=== PATIENT | male | born 1990 | race African-American/Black ===

== ENCOUNTER 2017-03-02 06:42 | Emergency (ER) | payer OTHER ==
[~2017-03-02] VITALS: Ht 177.8 cm; Wt 102.0 kg
[~2017-03-02 06:42] MED LIST: TRAZ-136 PO
[2017-03-02] MEDS ORDERED: KETOROLAC 60 MG/2 ML VIAL (J1885) IM ONE (08:00)
--- NOTE | 2017-03-02 09:04 | REP ---
Soft-tissue ultrasound right buttock region. History: Question right buttock abscess. Findings: Soft tissue sonography in the region of the palpable abnormality in the right buttock demonstrates a complex fluid collection measuring 2.6 x 1.7 x 2.3 cm. This shows enhanced through transmission and a well defined back wall. The lesion also appears to contain one or two tiny foci of echogenicity which may reflect air. Findings are most compatible with subcutaneous abscess. Impression: 2.6 x 2.3 x 1.7 cm complex fluid collection compatible with abscess. Signed by Rich Mcgrath MD 03/02/2017 09:12 A
[2017-03-02] MEDS ORDERED: BACT800T5 PO (09:49)
[2017-03-02] MEDS ORDERED: NAPR500T PO (09:49)
[2017-03-02] MEDS ORDERED: CYCL10TA PO (09:49)
[2017-03-02 10:13] VITALS: BP 130/64
== END 2017-03-02 10:14 | disposition home or self-care (01) ==
LOC: M ED 06:42
DX: S39.012A Strain of muscle, fascia and tendon of lower back, initial encounter (principal); M62.830 Muscle spasm of back; L02.31 Cutaneous abscess of buttock; X58.XXXA Exposure to other specified factors, initial encounter; Y92.9 Unspecified place or not applicable; Y93.9 Activity, unspecified; Y99.9 Unspecified external cause status
CPT/HCPCS: 10160; 76882; 87070; 87077; 87205; 96372; 99283; J1885; J3360

== ENCOUNTER → 2017-09-25 | Outpatient (CLI) | payer OTHER ==
[2017-09-25 11:45] LABS: IMMMOTILE SPERM CENTRIFUGED ABSENT (ABSENT); IMMOTILE SPERM ABSENT (ABSENT); MOTILE SPERM ABSENT (ABSENT); MOTILE SPERM CENTRIFUGED ABSENT (ABSENT); SEMEN APPEARANCE OPAQUE (OPAQUE); SEMEN VISCOSITY LIQUID (LIQUID); SEMEN VOLUME 1.5 ml (4.0-5.0); WBC CONCENTRATION <=1 M/ml (<=1 M/ml)
== END ==
LOC: M LAB 10:53
DX: Z30.8 Encounter for other contraceptive management (principal)